=== PATIENT | male | born 2000 | race African-American/Black ===

== ENCOUNTER 2019-01-02 12:26 | Emergency (ER) | payer MEDICAID, OTHER ==
[~2019-01-02] VITALS: Ht 172.7 cm; Wt 70.0 kg
[2019-01-02] MEDS ORDERED: IBUPROFEN 600MG TABLET PO STA (14:23)
[2019-01-02] MEDS ORDERED: BACITRACIN ZINC OINT UDPKT TOP ONE (14:30)
[2019-01-02 15:40] VITALS: BP 121/75
== END 2019-01-02 15:42 | disposition home or self-care (01) ==
LOC: ER 12:41
DX: S00.83XA Contusion of other part of head, initial encounter (principal); J45.909 Unspecified asthma, uncomplicated; V49.49XA Driver injured in collision with other motor vehicles in traffic accident, initial encounter; Y93.89 Activity, other specified; Y92.89 Other specified places as the place of occurrence of the external cause; Y99.8 Other external cause status
CPT/HCPCS: 99284